=== PATIENT | male | born 1960 | race Caucasian/White ===

== ENCOUNTER 2017-06-16 11:23 | Emergency (ER) | payer OTHER ==
[~2017-06-16] VITALS: Ht 177.8 cm; Wt 93.0 kg
[2017-06-16 11:29] VITALS: BP 105/77
== END 2017-06-16 12:06 | disposition home or self-care (01) ==
LOC: ER 11:26
DX: L73.8 Other specified follicular disorders (principal)
CPT/HCPCS: 99283; A4606; Z7610

== ENCOUNTER 2018-07-06 16:33 | Inpatient (IN) | payer MEDICAID, OTHER ==
[~2018-07-06] VITALS: Ht 172.7 cm; Wt 90.7 kg
[2018-07-06] MEDS ORDERED: oxyCODONE/APAP (5/325 MG) 1 UDTAB TABLET PO ONE (17:30)
[2018-07-06] MEDS ORDERED: IBUPROFEN 600 MG TABLET PO ONE ×2 (17:30→17:44)
[2018-07-06] MEDS ORDERED: oxyCODONE/APAP (5/325 MG) 1 UDTAB TABLET ONE (17:44)
[2018-07-06 18:05] LABS: CALCIUM, SERUM 8.6 mg/dL (8.5-10.1); CREATININE 1.1 mg/dL (0.6-1.3); POTASSIUM 3.8 mmol/L (3.5-5.1)
--- NOTE | 2018-07-06 19:05 | NUR ---
ASSUMED CARE. PT C/O R CALF PAIN. PT REPORTS THAT HE WAS TRYING TO GET OUT OF THE CAR WHNE HE HEARD A POP AND STARTED HAVING APIN SINCE THEN. PT AAOX4 NO ACUTE DISTRESS NOTED, RESP EVEN AND UNLABORED. PT STILL C/O R CALF PAIN 01/13. PENDING LAB RESULTS. WILL CONTINUE TO MONITOR PT CLOSELY.
--- NOTE | 2018-07-06 19:42 | NUR ---
[employer] On[employer] Paged. Spoke with Bertrand Bai.
--- NOTE | 2018-07-06 19:45 | NUR ---
RADIOLOGIST AT BEDSIDE
--- NOTE | 2018-07-06 19:46 | NUR ---
IV START TIME 1939. RIGHT AC. 18 G. IV END TIME 2039
--- NOTE | 2018-07-06 19:50 | NUR ---
LABS DRAWN AND GIVEN TO PARTY COORDINATOR AT BEDSIDE
[2018-07-06] MEDS ORDERED: IV LR 1000 ML 1,000 ML IV ONE (20:00)
[2018-07-06 20:04] LABS: BASOPHILS # (AUTO) 0.1 /CMM (0.0-0.2); BASOPHILS % (AUTO) 0.5 % (0.0-2.0); EOSINOPHILS % (AUTO) 0.5 % (0.0-6.0); HEMATOCRIT 44 % (39-51); HEMOGLOBIN 14.5 g/dL (13.5-17.5); LYMPHOCYTES # (AUTO) 1.8 /CMM (0.8-4.8); LYMPHOCYTES % (AUTO) 17.8 % (20.0-44.0); MEAN CORPUSCULAR HEMOGLOBIN 30 PG (26.0-33.0); MEAN CORPUSCULAR HGB CONC 33 g/dl (31.0-36.0); MEAN CORPUSCULAR VOLUME 89 fL (80-96); MONOCYTES # (AUTO) 1.1 /CMM (0.1-1.30); MONOCYTES % (AUTO) 10.7 % (2.0-12.0); NEUTROPHILS % (AUTO) 70.5 % (43.0-81.0); PLATELET COUNT (AUTO) 361 /CMM (150-450); RDW COEFFICIENT OF VARIATION 12.2 (11.5-15.0); RED BLOOD CELL COUNT(AUTO) 4.89 MIL/uL (4.5-6.0); WHITE BLOOD COUNT (AUTO) 10.1 K/uL (4.3-11.0)
[2018-07-06 20:20] LABS: INR 1.01 (0.85-1.15)
--- NOTE | 2018-07-06 20:24 | NUR ---
PT IS ASSIGNED TO MED SURG RM#: [id number], DX: [id number], AND ACCEPTING MD: GASPER.
--- NOTE | 2018-07-06 20:33 | NUR ---
GAVE REPORT TO VIMAL WHITE FOR BED 321-1
[2018-07-06] MEDS ORDERED: ZOLPIDEM TARTRATE 5 MG TABLET PO PRN (21:00)
[2018-07-06] MEDS ORDERED: ONDANSETRON HCL/PF 4 MG/2 ML VIAL IVP PRN (21:00)
[2018-07-06] MEDS ORDERED: Z GUARD REMEDY 2 OZ OINT TP PRN (21:00)
[2018-07-06] MEDS ORDERED: ACETAMINOPHEN 325 MG TABLET PO PRN (21:00)
[2018-07-06] MEDS ORDERED: MAGNESIUM HYDROXIDE 30 ML UDC PO PRN (21:00)
[2018-07-06] MEDS ORDERED: IBUPROFEN 400 MG TABLET PO PRN (21:00)
[2018-07-06] MEDS ORDERED: HYDROCODONE/APAP 5/325MG 1 EACH TABLET PO PRN (21:00)
[2018-07-06] MEDS ORDERED: MAG HYDROX/AL HYDROX/SIMETH 30 ML UDC PO PRN (21:00)
--- NOTE | 2018-07-06 21:07 | NUR ---
PT BEING TRANSFERRED TO BED 321
--- NOTE | 2018-07-06 21:10 | NUR ---
MS/RN NOTES RECEIVED PT. FROM ER VIA [facility]. PT. IS AWAKE, ALERT AND ORIENTED X4. BREATHING EVEN AND UNLABORED ON ROOM AIR. NO SOB, RESPIRATORY DISTRESS OR COMPLAINTS OF PAIN NOTED AT THIS TIME. ORIENTED PT. TO ROOM. PT. WITH RIGHT AC 18 GAUGE IV SALINE LOCK PRESENT, PATENT AND INTACT. PT. WITH RIGHT CALF NON-PITTING EDEMA NOTED. ELEVATED PT. RIGHT LOWER EXTREMITY ON PILLOWS. BED LOCKED AND IN LOWEST POSITION, SIDE RAILS UP X2, CALL LIGHT WITHIN REACH, WILL CONTINUE TO MONITOR.
[2018-07-06 21:12] VITALS: BP 125/66
[2018-07-06 21:30] VITALS: BP 125/66
[2018-07-06] MEDS: IV NS 0.9% 1,000 ML IV SCH (21:51)
[2018-07-07 00:13] LABS: CREATINE KINASE MB 8.3 ng/mL (0-3.6)
--- NOTE | 2018-07-07 06:16 | NUR ---
MS/RN NOTES PT. IS LYING IN BED RESTING. BREATHING EVEN AND UNLABORED ON ROOM AIR. NO SOB, RESPIRATORY DISTRESS OR COMPLAINTS OF PAIN NOTED AT THIS TIME. PT. WITH RIGHT AC 18 GAUGE PERIPHERAL IV PRESENT, PATENT AND INTACT ADMINISTERING TO PT. NS @ 125 ML/HR. ALL PT. NEEDS MET. BED LOCKED AND IN LOWEST POSITION, SIDE RAILS UP X2, CALL LIGHT WITHIN REACH, WILL ENDORSE TO DAYSHIFT NURSE FOR CONTINUITY OF CARE.
[2018-07-07] MEDS: IV NS 0.9% 1,000 ML IV SCH (06:23)
[2018-07-07 06:46] LABS: BASOPHILS % (AUTO) 0.3 % (0.0-2.0); EOSINOPHILS % (AUTO) 3.1 % (0.0-6.0); HEMATOCRIT 44 % (39-51); HEMOGLOBIN 14.2 g/dL (13.5-17.5); LYMPHOCYTES # (AUTO) 2.1 /CMM (0.8-4.8); LYMPHOCYTES % (AUTO) 25.7 % (20.0-44.0); MEAN CORPUSCULAR HEMOGLOBIN 30 PG (26.0-33.0); MEAN CORPUSCULAR HGB CONC 33 g/dl (31.0-36.0); MEAN CORPUSCULAR VOLUME 93 fL (80-96); MONOCYTES % (AUTO) 12.4 % (2.0-12.0); NEUTROPHILS # (AUTO) 4.7 /CMM (1.8-8.9); NEUTROPHILS % (AUTO) 58.5 % (43.0-81.0); PLATELET COUNT (AUTO) 328 /CMM (150-450); RDW COEFFICIENT OF VARIATION 13.1 (11.5-15.0); RED BLOOD CELL COUNT(AUTO) 4.71 MIL/uL (4.5-6.0); WHITE BLOOD COUNT (AUTO) 8.1 K/uL (4.3-11.0)
[2018-07-07 07:04] LABS: CALCIUM, SERUM 8.1 mg/dL (8.5-10.1); CREATININE 0.9 mg/dL (0.6-1.3); PHOSPHORUS 3.1 mg/dL (2.5-4.9); POTASSIUM 3.9 mmol/L (3.5-5.1)
[2018-07-07] MEDS ORDERED: HYDR-552 PO (07:35)
--- NOTE | 2018-07-07 07:55 | NUR ---
MS RN OPENING NOTES RECEIVED PT FROM NIGHTSHIFT NURSE IN STABLE CONDITION. PT IS A/O X4. NO SOB OR ACUTE SIGNS OF DISTRESS NOTED. BREATHING IS EVEN AND UNLABORED. HE REPORTS OF AN ACHING PAIN IN HIS RIGHT LOWER CALM RATED A 3/10, HOWEVER TOLERABLE. ORDERED MOTRIN ADMINISTERED BY NIGHTSHIFT NURSE. PT INSTRUCTED TO ALERT RN IN PT BECOMES INTOLERABLE AND VERBALIZED UNDERSTANDING. EXTREMITY ELEVATED ON PILLOWS AND HEEL IS OFFLOADED. IV TO LEFT AC NOTED TO BE PATENT AND INTACT. NO REDNESS OR SIGNS OF INFILTRATION NOTED. BED IN LOW LOCKED POSITION, SIDE RAILS UP X2, CALL LIGHT WITHIN REACH. WILL CONTINUE TO MONITOR.
[2018-07-07 08:00] VITALS: BP 113/65
[2018-07-07] MEDS ORDERED: IV NS 0.9% 1,000 ML IV PRN (09:17)
--- NOTE | 2018-07-07 13:26 | NUR ---
MS SANITATION OFFICER NOTES PT WAS DISCHARGED FROM FACILITY IN STABLE CONDITION.A LL NEEDS WERE MET DURING SHIFT AND ORDERS CARRIED OUT ACCORDINGLY ALL DUE MEDS GIVEN. HE DENIED ANY PAIN PRIOR TO D/C. PT ABLE TO AMBULATE WITH PERSONAL CANE AND PT WITH NO COMPLICATIONS. IV WAS SUCCESSFULLY REMOVED WITH NO COMPLICATIONS. D/C INSTRUCTIONS REVIEWED WITH PT AND COPIES OF PAPERWORK PROVIDED. PT SIGNED ALL D/C PAPERWORK.HEM WAS SAFELY ESCORTED FROM UNIT TO MAIN LOBBY AND LEFT VIA PRIVATE VEHICLE DRIVEN BY HIS WITH ALL BELONGINGS
== END 2018-07-07 13:10 | disposition home or self-care (01) | DRG 351 ==
LOC: ER 16:34 → MED 20:41
PROVIDERS: ADMIT Family Medicine; ATTEND Family Medicine
DX: M62.82 Rhabdomyolysis (principal); N17.9 Acute kidney failure, unspecified; F17.210 Nicotine dependence, cigarettes, uncomplicated; S86.111A Strain of other muscle(s) and tendon(s) of posterior muscle group at lower leg level, right leg, initial encounter; X58.XXXA Exposure to other specified factors, initial encounter; Y93.9 Activity, unspecified; Y92.009 Unspecified place in unspecified non-institutional (private) residence as the place of occurrence of the external cause
CPT/HCPCS: 36415; 73590-TC; 80048-TC; 80061-TC; 82550-TC; 82553-TC; 83735-TC; 84100-TC; 85025-TC; 85730-TC; 87081-TC; 93971-TC; A4606; J7030; J7120; Z7610